=== PATIENT | female | born 1960 ===

== ENCOUNTER 2022-04-27 07:27 | Emergency (ER) | payer SELFPAY ==
[2022-04-27 08:25] LABS: PTT,PARTIAL THROMBOPLSTIN TIME 24.1 SEC (22.0-34.0)
[2022-04-27 09:02] LABS: ANION GAP 12.7 mEq/L (7-13); CHLORIDE,CL 102 mmol/L (98-107); ESTIMATED GFR 59 mL/min (>=60); SODIUM,NA 140 mmol/L (136-145)
[2022-04-27 09:15] LABS: AMPHETAMINES,URINE NEGATIVE (NEGATIVE); BARBITURATES,URINE NEGATIVE (NEGATIVE); BENZODIAZEPINE,URINE NEGATIVE (NEGATIVE); MDMA (ECSTASY), URINE NEGATIVE (NEGATIVE); METHADONE,URINE NEGATIVE (NEGATIVE); METHAMPHETAMINES,URINE NEGATIVE (NEGATIVE); OPIATES,URINE NEGATIVE (NEGATIVE); OXYCODONE,URINE NEGATIVE (NEGATIVE); PHENCYCLIDINE,URINE NEGATIVE (NEGATIVE); TCA,URINE NEGATIVE (NEGATIVE)
[2022-04-27] MEDS: Acetaminophen 500 MG Tab PO ONE (09:46)
[2022-04-27] MEDS: Menthol 10%/Methyl Salicylate 15% 85 GM Tube TOP ONE (10:06)
[2022-04-27] MEDS: Hydrochlorothiazide 25 MG Tab PO ONE (10:18)
== END 2022-04-27 11:13 | disposition home or self-care (01) ==
LOC: DL.ED 07:27
DX: G44.219 Episodic tension-type headache, not intractable (principal); M25.512 Pain in left shoulder; G89.29 Other chronic pain; R03.0 Elevated blood-pressure reading, without diagnosis of hypertension; Z88.0 Allergy status to penicillin; Z91.048 Other nonmedicinal substance allergy status
CPT/HCPCS: 36415; 71045; 80053; 80305-QW; 80307; 81001; 82150; 83605; 83690; 83735; 83880; 84484; 85025; 85610; 85730; 86140; 93005; 93010; 99284; 99285; A9270-GY